=== PATIENT | female | born 1980 | race Caucasian/White ===

== ENCOUNTER 2016-05-01 13:24 | Emergency (ER) | payer OTHER ==
--- NOTE | 2016-05-01 13:35 | ER Document Report ---
ED Medical Screen (RME) - General Stated Complaint: POSSIBLE ABCESS Mode of Arrival: Ambulatory Information source: Patient Notes: Patient with abscess to right hip for the past 4 days. Patient then fell on the right hip 1 day later. No fever. hx: None I have greeted and performed a rapid initial assessment of this patient. A comprehensive ED assessment and evaluation of the patient, analysis of test results and completion of the medical decision making process will be conducted by additional ED providers. Physical Exam - Vital signs Vitals: Temp Pulse Resp BP Pulse Ox 97.5 F 73 16 104/64 98 05/01/16 13:32 05/01/16 13:32 05/01/16 13:32 05/01/16 13:32 05/01/16 13:32 - Skin Skin irregularity: Abscess - Right hip Course - Vital Signs Vital signs: Temp Pulse Resp BP Pulse Ox 97.5 F 73 16 104/64 98 05/01/16 13:32 05/01/16 13:32 05/01/16 13:32 05/01/16 13:32 05/01/16 13:32
[2016-05-01] MEDS ORDERED: SULFAMETHOXAZOLE/TRIMETHOPRIM 800-160 MG TABLET PO ONE (15:52)
[2016-05-01] MEDS ORDERED: HYDROCODONE/ACETAMINOPHEN 5-325 MG TABLET PO ONE (15:52)
--- NOTE | 2016-05-01 16:10 | ER Document Report ---
ED General - General Chief Complaint: Abscess Stated Complaint: POSSIBLE ABCESS Mode of Arrival: Ambulatory TRAVEL OUTSIDE OF THE [place] IN LAST 30 DAYS: No - HPI Patient complains to provider of: abscess right hip Notes: This coming in for evaluation of abscess right hip ongoing for the last 3 days. Patient states normal drainage at home. Denies any fevers chills nausea vomiting diarrhea. Denies any recent anabolic use. States she fell an abscess then developed. - Related Data Allergies/Adverse Reactions: levofloxacin [From Levaquin] Allergy (Verified 05/01/16 13:37) Past Medical History - General Information source: Patient - Social History Smoking Status: Current Every Day Smoker Family History: Reviewed & Not Pertinent Patient has suicidal ideation: No Patient has homicidal ideation: No Renal/ Medical History: Denies: Hx Peritoneal Dialysis - Immunizations Hx Diphtheria, Pertussis, Tetanus Vaccination: Yes Review of Systems - Review of Systems Constitutional: No symptoms reported EENT: No symptoms reported Cardiovascular: No symptoms reported Respiratory: No symptoms reported Gastrointestinal: No symptoms reported Genitourinary: No symptoms reported Female Genitourinary: No symptoms reported Musculoskeletal: No symptoms reported Skin: Other - Abscess Hematologic/Lymphatic: No symptoms reported Neurological/Psychological: No symptoms reported -: Yes All other systems reviewed and negative Physical Exam - Vital signs Vitals: Temp Pulse Resp BP Pulse Ox 97.5 F 73 16 104/64 98 05/01/16 13:32 05/01/16 13:32 05/01/16 13:32 05/01/16 13:32 05/01/16 13:32 Interpretation: Normal - General General appearance: Appears well, Alert - HEENT Head: Normocephalic, Atraumatic Eyes: Normal Pupils: PERRL - Respiratory Respiratory status: No respiratory distress Chest status: Nontender Breath sounds: Normal Chest palpation: Normal - Cardiovascular Rhythm: Regular Heart sounds: Normal auscultation Murmur: No - Abdominal Inspection: Normal Distension: No distension Bowel sounds: Normal Tenderness: Nontender Organomegaly: No organomegaly - Back Back: Normal, Nontender - Extremities General upper extremity: Normal inspection, Nontender, Normal color, Normal ROM , Normal temperature General lower extremity: Normal inspection, Nontender, Normal color, Normal ROM , Normal temperature, Normal weight bearing. No: Micky's sign - Neurological Neuro grossly intact: Yes Cognition: Normal Orientation: AAOx4 [place] Coma Scale Eye Opening: Spontaneous Kevin Coma Scale Verbal: Oriented [place] Coma Scale Motor: Obeys Commands Kevin Coma Scale Total: 15 Speech: Normal Motor strength normal: LUE, RUE, LLE, RLE Sensory: Normal - Psychological Associated symptoms: Normal affect, Normal mood - Skin Skin Temperature: Warm Skin Moisture: Dry Skin Color: Normal Notes: Patient with an abscess proximal 7 cm x 5 cmrs below the right trochanter with an area of drainage and center with Selleck process surrounding the abscess. Course - Re-evaluation Re-evalutation: 05/01/16 20:14 I and D performed. Please see note patient will be discharged home with Bactrim. - Vital Signs Vital signs: Temp Pulse Resp BP Pulse Ox 98.0 F 72 16 122/66 99 05/01/16 16:25 05/01/16 16:25 05/01/16 16:25 05/01/16 16:25 05/01/16 16:25 Procedures - Incision and Drainage Right Leg Type: Simple Anesthetic type: 1% Lidocaine mL's of anesthetic: 4 I&D procedure: Betadine prep applied Incision Method: Incision made by scalpel Amount/type of drainage: 5 mL's and blood irrigated to clear Discharge - Discharge Clinical Impression: Abscess of hip, right Condition: Good Disposition: HOME, SELF-CARE Instructions: Post Incision and Drainage, Oral Narcotic Medication ([facility]), Trimethoprim-Sulfa ([facility]), Abscess ([facility]) Additional Instructions: Please follow-up with your primary care physician. Take medication as prescribed. Return to the ER symptoms worsen Prescriptions: Hydrocodone Bit/Acetaminophen [Hydrocodon-Acetaminophen 5-325] 1 each PO Q6 #20 tablet Sulfamethoxazole/Trimethoprim [Bactrim Ds Tablet] 1 each PO BID #20 tablet Forms: Return to Work
[2016-05-01 16:33] VITALS: BP 122/66
== END 2016-05-01 16:25 | disposition home or self-care (01) ==
LOC: ER 13:24
PROC: 0H9HXZZ Drainage of Right Upper Leg Skin, External Approach (ICD-10-PCS; principal; 2016-05-01)
DX: L02.415 Cutaneous abscess of right lower limb (principal); F17.210 Nicotine dependence, cigarettes, uncomplicated
CPT/HCPCS: 87070; 87077; 87186; 87205; 99283

== ENCOUNTER 2017-04-28 12:01 | Emergency (ER) | payer BC ==
--- NOTE | 2017-04-28 12:38 | ER Document Report ---
HPI - HPI Pain Level: 3 Notes: Patient is a 37-year-old female with no significant past medical history presents to the ED complaining of a sore throat, swollen lymph node on her neck , right ear pressure 3 days. Patient states that she did have the flu 3 weeks ago, but those symptoms have since resolved. Patient states that she is otherwise eating and drinking without difficulties. She is urinating normally and having normal bowel movements. Patient states that the lymph node in her neck has gone down in size over the last 24 hours. Patient would like tested for strep. She denies any IV drug use. No other concerns or complaints at this time. - ROS Systems Reviewed and Negative: Yes All other systems reviewed and negative - CONSTITUTIONAL Constitutional: REPORTS: Fever. DENIES: Chills - EENT EENT: REPORTS: Sore Throat - RESPIRATORY Respiratory: DENIES: Coughing - REPRODUCTIVE LMP: 04/26/17 Past Medical History - Social History Smoking Status: Current Every Day Smoker Frequency of alcohol use: Rare Drug Abuse: None Family History: Reviewed & Not Pertinent Patient has suicidal ideation: No Patient has homicidal ideation: No Renal/ Medical History: Denies: Hx Peritoneal Dialysis Past Surgical History: Reports: Hx Section - X3 - Immunizations Hx Diphtheria, Pertussis, Tetanus Vaccination: Yes Vertical Provider Document - CONSTITUTIONAL Agree With Documented VS: Yes Notes: PHYSICAL EXAMINATION: GENERAL: Well-appearing, well-nourished and in no acute distress. A&Ox4. Answers questions appropriately. Moves comfortably w/o notable distress HEAD: Atraumatic, normocephalic. EYES: Pupils equal round and reactive to light, extraocular movements intact, sclera anicteric, conjunctiva are normal. ENT: EAC clear b/l. TM's intact b/l without erythema, fluid, or perforation. Nares patent and with clear discharge. oropharynx mild erythema without exudates. 1+ tonsilar hypertrophy with mild erythema no exudate. No palatine shift. Uvula midline. No tongue protrusion. No drooling, hoarseness, or airway compromise. Moist mucous membranes. No sinus tenderness. NECK: Normal range of motion, supple with a small mobile, tender lymph node to the rt ant. cerv chain. No rigidity/meningismus. LUNGS: Breath sounds clear to auscultation bilaterally and equal. No wheezes rales or rhonchi. No retractions HEART: Regular rate and rhythm without murmurs, rubs, gallops. ABDOMEN: Soft, nontender, nondistended abdomen. No guarding, no rebound. No masses appreciated. Normal bowel sounds present. No CVA tenderness bilaterally. No hepatosplenomegaly. NEUROLOGICAL: Normal speech, normal gait. Normal sensory, motor exams PSYCH: Normal mood, normal affect. SKIN: Warm, Dry, normal turgor, no rashes or lesions noted. - INFECTION CONTROL TRAVEL OUTSIDE OF THE [place] IN LAST 30 DAYS: No Course - Re-evaluation Re-evalutation: 04/28/17 12:44 Patient is an afebrile, well-hydrated, 37-year-old female who presents ED with acute pharyngitis, suspect viral. Vitals are stable. PE is otherwise unremarkable. Rapid strep was negative for throat culture pending. Decadron given 10 mg IM today. No other labs or imaging warranted at this time based on H&P. Patient is tolerating p.o. without any difficulties. Low suspicion for any meningitis, sepsis, peritonsillar/pharyngeal abscess, respiratory compromise , Goran's, or other emergent systemic condition at this time. Patient is aware this condition can change from initial presentation and she needs to monitor symptoms closely. Conservative measures otherwise for symptoms. Recheck with your PCM in 3-5 days. Return to the ED with any worsening/ concerning symptoms otherwise as reviewed in discharge. Patient is in agreement. Discharge - Discharge Clinical Impression: Acute pharyngitis Qualifiers: Pharyngitis/tonsillitis etiology: unspecified etiology Qualified Code(s): J02.9 - Acute pharyngitis, unspecified Condition: Stable Disposition: HOME, SELF-CARE Instructions: Sore Throat ([facility]) Additional Instructions: Maintain adequate fluid intake Take meds as directed Salt water gargles, throat sprays, mouthwash rinse, peroxide gargles tylenol/ibuprofen as needed over the counter cold medication as needed for symptoms F/u: with your PCM in 3-5 days for a recheck Consider consult with ENT for ongoing/worsening symptoms Return to the ED with any fever, worsening pain, chest pain, neck pain/stiffness , shortness of breath, cough, drooling, trouble swallowing/breathing, abdominal pain, n/v/d, rash, or worsening/concerning symptoms otherwise. Forms: Smoking Cessation Education Referrals: [facility] SUN, [ASSOCIATE] - Follow up as needed
[2017-04-28] MEDS ORDERED: DEXAMETHASONE SOD PHOS INJ 10 MG/1 ML VIAL IM ONE (12:44)
== END 2017-04-28 12:59 | disposition home or self-care (01) ==
LOC: ER 12:01
DX: J02.9 Acute pharyngitis, unspecified (principal); R59.9 Enlarged lymph nodes, unspecified; H92.01 Otalgia, right ear; F17.200 Nicotine dependence, unspecified, uncomplicated
CPT/HCPCS: 99283; 96372; 87070; 87880; J1100

== ENCOUNTER 2019-01-12 18:05 | Emergency (ER) | payer OTHER, BC ==
--- NOTE | 2019-01-12 18:24 | ER Document Report ---
ED Medical Screen (RME) - General Chief Complaint: Vaginal Bleeding Stated Complaint: ABDOMINAL PAIN Time Seen by Provider: 01/12/19 18:21 Mode of Arrival: Ambulatory Information source: Patient Notes: 38-year-old female presented to ED for vaginal bleeding and pelvic pain. She states the vaginal bleeding started earlier yesterday but it got much worse around 8 PM when she started having pelvic pain. She thought she was just having a second. Until the vaginal bleeding became much worse and she started having pelvic pain. She states her last menstrual cycle was 12/24/18. Patient states she smokes about 1/2 pack a day, drinks monthly and does not use any illicit drugs. I have greeted and performed a rapid initial assessment of this patient. A comprehensive ED assessment and evaluation of the patient, analysis of test results and completion of medical decision making process will be conducted by an additional ED providers. TRAVEL OUTSIDE OF THE [place] IN LAST 30 DAYS: No - Related Data Allergies/Adverse Reactions: levofloxacin [From Levaquin] Allergy (Verified 05/01/16 13:37) Past Medical History Renal/ Medical History: Denies: Hx Peritoneal Dialysis Past Surgical History: Reports: Hx Section - X3 - Immunizations Hx Diphtheria, Pertussis, Tetanus Vaccination: Yes Physical Exam - Vital signs Vitals: Temp Pulse Resp BP Pulse Ox 98.0 F 74 17 99/54 L 99 01/12/19 18:12 01/12/19 18:12 01/12/19 18:12 01/12/19 18:12 01/12/19 18:12 Course - Vital Signs Vital signs: Temp Pulse Resp BP Pulse Ox 98.0 F 74 17 99/54 L 99 01/12/19 18:12 01/12/19 18:12 01/12/19 18:12 01/12/19 18:12 01/12/19 18:12
[2019-01-12 19:02] LABS: ABSOLUTE BASOPHILS # (AUTO) 0.1 10^3/uL (0.0-0.2); ABSOLUTE EOSINOPHILS # (AUTO) 0.3 10^3/uL (0.0-0.6); ABSOLUTE LYMPHOCYTES (AUTO) 3.2 10^3/uL (0.5-4.7); ABSOLUTE MONOCYTES (AUTO) 0.5 10^3/uL (0.1-1.4); ABSOLUTE NEUT (AUTO) 4.6 10^3/uL (1.7-8.2); BASOPHILS % (AUTO) 0.8 % (0-2); EOSINOPHILS % (AUTO) 3.5 % (0-6); HEMATOCRIT 38.4 % (36.0-47.0); HEMOGLOBIN 13.2 g/dL (12.0-15.5); LYMPHOCYTES % (AUTO) 37.2 % (13-45); MEAN CORPUSCULAR HGB CONC 34.3 g/dL (32.0-36.0); MEAN CORPUSCULAR VOLUME 91 fl (80-97); MONOCYTES % (AUTO) 5.7 % (3-13); PLATELET COUNT 205 10^3/uL (150-450); RED BLOOD COUNT 4.24 10^6/uL (3.72-5.28); RED CELL DISTRIBUTION WIDTH 12.6 % (11.5-14.0); SEGMENTED NEUTROPHILS % (AUTO) 52.8 % (42-78); TOTAL CELLS COUNTED % (AUTO) 100 %; WHITE BLOOD COUNT 8.7 10^3/uL (4.0-10.5)
[2019-01-12 19:26] LABS: ALBUMIN 4.4 g/dL (3.5-5.0); ALKALINE PHOSPHATASE 68 U/L (38-126); ANION GAP 10 (5-19); ASPARTATE AMINO TRANSFERASE 27 U/L (14-36); BILIRUBIN,DIRECT 0.2 mg/dL (0.0-0.4); BILIRUBIN,TOTAL 0.5 mg/dL (0.2-1.3); BLOOD UREA NITROGEN 15 mg/dL (7-20); CALCIUM 9.9 mg/dL (8.4-10.2); CARBON DIOXIDE 24 mmol/L (22-30); CHLORIDE 110 mmol/L (98-107); GLUCOSE 97 mg/dL (75-110); TOTAL PROTEIN 7.3 g/dL (6.3-8.2)
[2019-01-12 19:30] LABS: APPEARANCE,URINE CLEAR; BILIRUBIN,URINE NEGATIVE (NEGATIVE); COLOR,URINE YELLOW; GLUCOSE, URINE NEGATIVE (NEGATIVE); KETONES,URINE NEGATIVE (NEGATIVE); PROTEIN,URINE NEGATIVE (NEGATIVE); URINE SPECIFIC GRAVITY 1.005; UROBILINOGEN,URINE NEGATIVE mg/dL (<2.0)
--- NOTE | 2019-01-12 20:21 | ER Document Report ---
ED General - General Chief Complaint: Vaginal Bleeding Stated Complaint: ABDOMINAL PAIN Time Seen by Provider: 01/12/19 18:21 Mode of Arrival: Ambulatory TRAVEL OUTSIDE OF THE [place] IN LAST 30 DAYS: No - HPI Notes: 38-year-old female presents with vaginal bleeding. Patient's last normal period was around the second of the month with the first day. She states her last couple days she is developed gradual onset lower pelvic pain and vaginal bleeding. Poorly quantified but like a second menstruation. No fever, chills or sweats. Gradual onset sharp pain, midline and bilateral lower pelvic. The use of anticoagulants, no history of liver disease. Does not believe she is p regnant. No vaginal discharge. No other modifying factors, no other associated symptoms, no other provocative or palliative factors. Moderate intensity. No worse with motion. - Related Data Allergies/Adverse Reactions: levofloxacin [From Levaquin] Allergy (Verified 05/01/16 13:37) Home Medications: tylenol PRN. aleve PRN Past Medical History - General Information source: Patient Last Menstrual Period: 12/24/18 - Social History Smoking Status: Current Every Day Smoker Frequency of alcohol use: Occasional Drug Abuse: None Family History: Reviewed & Not Pertinent Patient has suicidal ideation: No Patient has homicidal ideation: No - Medical History Notes: No pertinent history Renal/ Medical History: Denies: Hx Peritoneal Dialysis Past Surgical History: Reports: Hx Section - X3 - Immunizations Hx Diphtheria, Pertussis, Tetanus Vaccination: Yes Review of Systems - Review of Systems Notes: Review of systems as in the history of present illness, otherwise negative x 10 systems. Physical Exam - Vital signs Vitals: Temp Pulse Resp BP Pulse Ox 98.0 F 74 17 99/54 L 99 01/12/19 18:12 01/12/19 18:12 01/12/19 18:12 01/12/19 18:12 01/12/19 18:12 - Notes Notes: General: Well developed . HEENT: Normocephalic, atraumatic. Pupils equal round reactive to light. No JVD. Chest: No trauma. Respiratory: Good air exchange, normal excursion. Cardiac: Regular rhythm. No murmurs or gallops. Abdomen: Soft, benign. Nondistended. Nontender. Back: No asymmetry or gross abnormality. Motor: Grossly normal power and tone. Neurologic: Alert, nonfocal. Cranial nerves II-12 are intact. Sensation intact. Vascular: Well perfused. Normal peripheral pulses. Skin: No petechiae or purpura. Course - Re-evaluation Re-evalutation: 01/12/19 20:21 38-year-old female with likely dysfunctional uterine bleeding, seen by a provider in triage and prior to my initial evaluation, labs returned showing unremarkable CBC chemistries and negative UPT. Transvaginal ultrasound is pending, plan to proceed with serial exams, pelvic examination, await results of ultrasound. 01/12/19 20:59 Ultrasound is unremarkable except for a cyst, possibly hemorrhagic. Pelvic examination shows no active bleeding, closed eyes, no obvious mass or tenderness. Patient is discharged home with prescription for naproxen, referred to [facility] ASSOCIATE, return if worsening. She is given instructions with regard to ovarian cyst and follow-up. - Vital Signs Vital signs: Temp Pulse Resp BP Pulse Ox 98.0 F 74 17 99/54 L 99 01/12/19 18:12 01/12/19 18:12 01/12/19 18:12 01/12/19 18:12 01/12/19 18:12 - Laboratory Result Diagrams: 01/12/19 18:45 01/12/19 18:45 Laboratory results interpreted by me: 01/12/19 01/12/19 18:45 18:50 Chloride 110 H Urine Blood LARGE H Discharge - Discharge Clinical Impression: DUB (dysfunctional uterine bleeding) Condition: Stable Disposition: HOME, SELF-CARE Instructions: Dysfunctional Uterine Bleeding ([facility]) Prescriptions: Naproxen 500 mg PO Q12 PRN #12 tablet PRN Reason: Referrals: FARHAD DE LA ROSA MD [ACTIVE STAFF] - Follow up as needed
--- NOTE | 2019-01-12 20:23 | RADIOLOGY REPORT (SQ) ---
EXAM DESCRIPTION: US PELVIS TRANSVAGINAL COMPLETED DATE/TME: 01/12/2019 18:24 CLINICAL HISTORY: 38 years, Female, Pelvic pain vaginal bleeding COMPARISON: None. TECHNIQUE: Axial 2-D grayscale images of the pelvis were acquired. Doppler was utilized. LIMITATIONS: None. FINDINGS: Uterus measures 8.7 x 4.3 x 4.5 cm in size. Cervix is closed, measuring 1.6 cm in length. A tiny nabothian cyst is noted. Endometrial stripe thickness measures 8 mm. Right ovary measures 1.8 x 1.2 x 1.7 cm in size. It demonstrates normal echogenicity as well as Doppler flow. However, spectral analysis was not performed. Left ovary measures 2.8 x 2.2 x 2.7 cm in size. Otherwise, the left ovary demonstrates elements of Doppler flow. It contains a hypoechoic lesion measuring 2.0 x 1.8 x 1.9 cm in size without Doppler flow. However, spectral analysis was not performed. IMPRESSION: Hypoechoic lesion located about the left ovary measuring 2.0 x 1.8 x 1.9 cm in size, indeterminate though potentially indicating a hemorrhagic cyst. Recommend follow-up pelvic ultrasound in 6-12 weeks to document resolution. No additional acute sonographic evidence abnormality. copyright 2010 [employer] All Rights Reserved
[2019-01-12 21:15] VITALS: BP 102/61
== END 2019-01-12 21:16 | disposition home or self-care (01) ==
LOC: ER 18:05
DX: N93.9 Abnormal uterine and vaginal bleeding, unspecified (principal); N83.209 Unspecified ovarian cyst, unspecified side; R10.2 Pelvic and perineal pain; F17.200 Nicotine dependence, unspecified, uncomplicated; Z88.1 Allergy status to other antibiotic agents; N93.8 Other specified abnormal uterine and vaginal bleeding
CPT/HCPCS: 36415; 76830; 80053; 81001; 84703; 85025; 99284